=== PATIENT | female | born 1940 | race Caucasian/White ===

== ENCOUNTER → 2016-06-29 | Outpatient (CLI) | payer OTHER ==
[~2016-06-29] MED LIST: AVAPRO300 M1 PO; BACTRIM DS TABL1 TA1 PO; COMBIVENT14.7 GM INH; COUMADIN; CRESTOR10 MG PO; CRESTOR40 MG PO; FISH OIL; FUROSEMIDE40 MG PO; KLOR-CON PO; LASIX; LASIX PO; LASIX20 MG PO; LEVAQUIN PO; LEXAPRO; LEXAPRO PO; LIPITOR PO; LOPID600 MG PO; LOPRESSOR; NEURONTIN600 MG PO; NORVASC; POTASSIUM CHLO10 MEQ PO; PREDNISONE PO; PREVACID; PREVACID PO; PREVACID15 MG PO; PROTONIX; SIMCOR 500-21 BOTTLE PO; SINGULAIR PO; SPIRIVA18 MCG INH; SYMBICORT INH; SYMBICORT80 INH; TRICOR PO; TRICOR145 MG PO; TYLOX1 CAP 5/50 PO; VIBRAMYCIN100 M1 PO; VYTORIN 10/40 T1 TAB; ZYRTEC; ZYRTEC PO; [UNRECOGNIZED DRUG - OTHER]
--- NOTE | ~2016-06-29 | BD1 ---
[facility] A Service of [facility] & [facility] RADIOLOGY TEXT RESULTS PATIENT: ANGELICA MONAHAN LOCATION: [facility] : 44 UNIT #: [id number] AGE: [address]: Thao Mayfield MD SEX: F ORDER DR: [id number] [facility] [address]. [place], [place] [address] [id number] O MR#: [id number] Acc #: [id number] NAME: ANGELICA MONAHAN : 1940 SEX: F STUDY DATE/TIME: 06/29/2016 13:58 UNIT: [facility] ROOM: STUDY DESCRIPTION: BD Dexa Bone Dens 1+ Site Attending Physician: Thao Mayfield M.D. Referring Physician: Thao Mayfield M.D. Ordering Physician: Thao Mayfield M.D. Primary Care Physician: Thao Mayfield M.D. MEDICAL IMAGING REPORT This report is preliminary unless electronic signature is present EXAM Bone density scan 06/29/2016 HISTORY Osteoporosis, smoker 30 years. Current smoker. Family history of osteoporosis, mother and sister. Postmenopause. FINDINGS Bone density scanning performed upper four lumbar vertebral segments and proximal left femur in 114 lb 76-year-old female. No comparison. L1-L4: Total bone mineral density 0.645 g/cm2 for T-score 3.7 standard deviations below mean for reference population normal young individuals and Z-score 1.3 standard deviations below mean for age-matched population. Proximal left femur: Total bone mineral density 0.419 g/cm2 for T-score 4.3 standard deviations below mean for reference population normal young individuals and Z-score 2.6 standard deviations below the mean for age-matched population. In the left femoral neck, bone mineral density is 0.383 g/cm2 for T-score 4.2 score 4.2 standard deviations below mean for reference population normal young individuals and Z-score 2.2 standard deviations below mean for age-matched population. IMPRESSION Osteoporosis in the proximal left femur. The patient is felt to be at significantly increased risk for fracture. Treatment options may be considered. Continued surveillance is recommended. Incidental note is made of osteoporosis in the upper four lumbar vertebral segments overall as well. [facility]. [facility] A Service of [facility] & [facility] RADIOLOGY TEXT RESULTS PATIENT: ANGELICA MONAHAN LOCATION: [facility] : 44 UNIT #: [id number] AGE: [address]: Thao Mayfield MD SEX: F ORDER DR: Dictated by... Louie Miguel M.D. THIS IS AN ELECTRONICALLY VERIFIED REPORT Louie Miguel M.D. at 06/30/2016 2:17 PM JAYMIE/deven TD: 06/30/2016 11:36 JOB #: [id number] MEDICAL IMAGING REPORT Page 1 of 1 COPY
== END | disposition home or self-care (01) ==
LOC: CWCC 13:27
DX: M81.0 Age-related osteoporosis without current pathological fracture (principal)
CPT/HCPCS: 77080